=== PATIENT | male | born 1940 | race African-American/Black ===

== ENCOUNTER 2016-12-03 10:41 | Emergency (ER) | payer MEDICARE | END 2016-12-03 18:37 | disposition home or self-care (01) | LOC: ER 10:41 | DX: M11.231 Other chondrocalcinosis, right wrist (principal); M13.131 Monoarthritis, not elsewhere classified, right wrist | CPT/HCPCS: 36415; 71010; 80053; 82553; 83880; 84484; 84550; 85025; 85652; 86141; 93005 ==